=== PATIENT | male | born 1995 | race African-American/Black ===

== ENCOUNTER → 2016-06-01 | Day surgery (SDC) | payer OTHER ==
[~2016-06-01] MED LIST: ADVAIR 1001 DISK W/D PO; ADVAIR INH; ALBUTEROL17 GM INH; FLEXERIL10 MG PO; NAPROSYN500 MG PO; PREDNISONE5 MG PO; ROBAXIN500 MG PO
--- NOTE | ~2016-06-01 | OR ---
Unit #: [id number] #: [id number] Patient: CHRISTIE DOTSON [id number] [address] [place], [place] [address] [id number] MR#: [id number] NAME: CHRISTIE DOTSON. ROOM: Date of Procedure: 06/01/2016 Admission Date: 06/01/2016 Surgeon: Gamaliel Crowe M.D. : 1995 Attending Physician: Gamaliel Crowe M.D. Primary Care Physician: Veronica Wiggins M.D. OPERATIVE REPORT SERVICES PROVIDED 1. Therapeutic lumbar epidural steroid injection. 2. Fluoroscopy of the lumbosacral spine. 3. IV sedation to facilitate the above. PREOPERATIVE DIAGNOSES 1. Degenerative disk disease at L5-S1 with right S1 radiculopathy. 2. Depression. POSTOPERATIVE DIAGNOSES 1. Degenerative disk disease at at L5-S1 with right S1 radiculopathy. 2. Depression. PROCEDURE PERFORMED Lumbar epidural steroid injection using fluoroscopy. FOLLOW-UP/REVIEW OF SYSTEMS/PHYSICAL EXAM Mr. Dotson is here for a lumbar epidural steroid injection. He has responded well to interventional treatment with near complete resolution of radiculopathy following the last intervention until recently. He wishes to proceed with repeat interventions since the pain and radiculopathy has recurred. He deferred surgery at this time. He has no major contraindications to the procedure and performed as follows with his consent. INDICATIONS/COMMENTS AND CONSENTS/STATEMENT OF MEDICAL NECESSITY The patient's current medications, allergies and vital signs are documented in the nursing assessment. The risks and benefits of the intervention(s) were discussed with the patient in detail including but not limited to infection, bleeding, meningitis, steroid induced side-effects, nerve damage, paralysis, spinal headaches, neuritis, persistent or worsening pain. The patient wishes to proceed. A separate pain assessment is also in the chart. I have reviewed all of this and have reviewed this with the patient. A current History and Physical is also attached. DESCRIPTION OF PROCEDURE(S) 1. Monitoring and positioning: After appropriate discussions it was decided to perform the procedure under local anesthesia with supplemental intravenous sedation. Vital signs were monitored in pre, intra and post-procedure phase. Monitoring included EKG, non-invasive BP, pulse oximetry, and temperature. These are documented and were stable. Unit #: [id number] #: [id number] Patient: CHRISTIE DOTSON Appropriate supports and restraints were used. 2. Sedation: A total of 2 mg of Versed and 100 mcg of fentanyl was administered. 3. Lumbar epidural injection/fluoroscopy: The patient was placed in the sitting position. Positional supports were used. Fluoroscopy of the lumbar spine was performed. Sterile prep and drape with carried out with ChloraPrep. Local anesthesia was with infiltrated with 3 mL of preservative-free 1% Lidocaine. Once anesthesia was established, a 22-gauge Tuohy epidural needle was inserted at the L5-S1 level epidurally, using an right interlaminar approach, loss of resistance to saline technique, and with fluoroscopic guidance. Needle placement tested negative for subarachnoid and intravascular placement. An intra-operative epidurogram was now performed. Intra-operative epidurogram: 1 mL(s) of Isovue-M300 was injected through the epidural needle under continuous fluoroscopy. The dye was seen to spread to L5 in the cephalad direction, and to S1 in the caudal direction. The spread of the dye was uniform. 1 mL of preservative-free normal saline was used to irrigate the dye off the epidural space. There was no intravascular or intrathecal spread of contrast. A lumbar epidural steroid injection was now performed using a total of 3 mL of solution containing 0.2% bupivacaine and 80 mg of Depo-Medrol in 2 mL. Fluoroscopic imaging confirmed spread of medication. The needle was then removed intact. The skin was washed off. Prep solution and dressings were applied at the injection site. The patient tolerated the procedure well. The patient was then observed in the recovery area for 30 minutes. RESULTS The patient had a consistent block with the dose of local anesthetic used. Pain relief was satisfactory. There were no complications or side effects. DISCHARGE CONDITION 1. Patient was discharged in satisfactory condition accompanied by a family member. 2. Post-procedure instructions were given. PLAN(S) The patient will return to the clinic in 2 months for re-assessment and office visit. I thank the patient's referring physician for the opportunity to participate in the care of this patient. Please do not hesitate to call for any questions regarding this patient's pain management. Dictated by... Gamaliel Crowe M.D. BRIDGETT/melany TD: 06/01/2016 08:42 JOB #: [id number] Unit #: [id number] #: [id number] Patient: CHRISTIE DOTSON OPERATIVE REPORT X Gamaliel Crowe MD PROCEDURE OPERATIVE NOTE
== END | disposition home or self-care (01) ==
LOC: CCSC 07:06
PROVIDERS: Anesthesiology
PROC: 3E0R3BZ Introduction of Anesthetic Agent into Spinal Canal, Percutaneous Approach (ICD-10-PCS; 2016-06-01)
PROC: 3E0R33Z Introduction of Anti-inflammatory into Spinal Canal, Percutaneous Approach (ICD-10-PCS; principal; 2016-06-01 08:00)
DX: M51.17 Intervertebral disc disorders with radiculopathy, lumbosacral region (principal); F32.9 Major depressive disorder, single episode, unspecified; J45.909 Unspecified asthma, uncomplicated
CPT/HCPCS: J1040; J2250; J3010